=== PATIENT | female | born 1975 | race Caucasian/White ===

== ENCOUNTER 2016-04-27 14:54 | Emergency (ER) | payer OTHER ==
[2016-04-27] MEDS ORDERED: KETOROLAC TROMETHAMINE 60 MG/2 ML VIAL ONE (15:20)
--- NOTE | 2016-04-27 16:37 | RADIOLOGY REPORT ---
HISTORY: Pain COMPARISON: None. FINDINGS: 3 views of the right knee were obtained. No fracture or dislocation is demonstrated. There is no join t effusion. Joint spaces are preserved. There is no chondrocalcinosis. IMPRESSION: Negative right knee. Final Electronic Signature: This report was electronically signed by Yunior Vasquez MD on 04/27/2016 4:35 PM. anton /
--- NOTE | 2016-04-27 16:44 | MRI REPORT ---
EXAM:[place] [id number] INDICATION: Popping sound and severe pain. COMPARISON:Radiographs from earlier today TECHNIQUE:Multiplanar T2 fat suppressed, parasagittal proton-density and coronal T1-weighted images w ere obtained through the right knee, along with spoiled gradient echo parasagittal images. FINDINGS: A small joint effusion is present. The patellofemoral ligaments are intact. The patellar an d trochlear cartilage appear normal. The quadriceps and patellar tendons are intact. There is a nonsp ecific small focus of marrow edema in the superior aspect of the patella. No fracture is demonstrated. The cruciate and collateral ligaments are intact. The iliotibial band, p opliteus tendon, biceps femoris tendon, and other lateral supporting structures are intact. The medial and lateral articular cartilage appears normal. Abnormal linear signal intensity and loss of volume involving the posterior horn of the lateral meniscus, with meniscal material displaced into the intercondylar notch. Some of the material is attached to the anterior horn, consistent with a bu cket-handle tear. The medial meniscus is intact. There is no Aguillon's cyst or other soft tissue mass. IMPRESSION: 1. Bucket-handle tear of the lateral meniscus, with displaced meniscal material in the intercondylar notch. 2. Intact ligaments and medial meniscus. 3. Small joint effusion. 4. Small focus of marrow edema in the superior patella, possibly from contusion. This report was discussed with Dr. Reynolds on 04/27/2016 at 4:44 PM Final Electronic Signature: This report was electronically signed by Yunior Vasquez MD on 04/27/2016 4:41 PM. anton /
[2016-04-27] MEDS ORDERED: HYDROmorphone HCL 1 MG/ML SYR ONE (17:14)
[2016-04-27] MEDS ORDERED: ONDANSETRON HCL 4 MG/2 ML VIAL ONE (17:14)
[2016-04-27 17:16] LABS: BASOPHIL# 0.1 X 10^3uL (0.0-0.1); BASOPHILS 0.6 % (0.0-2.0); EOSINOPHILS 1.8 % (0.0-6.0); EOSINOPHILS# 0.2 X 10^3uL (0.0-0.4); HEMATOCRIT 43.3 % (36.0-48.0); HEMOGLOBIN 14.8 g/dL (12.0-16.0); LYMPHOCYTES 18.6 % (20.0-40.0); LYMPHOCYTES# 1.7 X 10^3uL (0.8-3.8); MEAN CELL VOLUME 88.5 fL (80.0-100.0); MEAN CORPUS. HGB CONCENTRATION 34.3 g/dL (32.0-36.0); MEAN CORPUSCULAR HEMOGLOBIN 30.3 pg (29.0-35.0); MEAN PLATELET VOLUME 8.8 fL (7.4-10.4); MONOCYTES# 0.5 X 10^3uL (0.2-1.0); NEUTROPHILS# 6.6 X 10^3uL (2.6-6.7); PLATELET COUNT 324 X 10^3uL (130-440); RED BLOOD COUNT 4.89 X 10^6uL (4.20-6.10); RED CELL DISTRIBUTION WIDTH 12.4 % (11.5-14.5); WHITE BLOOD COUNT 9.1 X 10^3uL (3.9-10.7)
[2016-04-27 17:24] LABS: BLOOD UREA NITROGEN 20 mg/dL (7-17); CALCIUM 9.4 mg/dL (8.4-10.2); CHLORIDE 105 mmol/L (98-107); CREATININE 0.7 mg/dL (0.5-1.0); EST GLOMERULAR FILTRATION RATE > 60 mL/min; GLUCOSE 85 mg/dL (70-100); POTASSIUM 3.9 mmol/L (3.5-5.1); SODIUM 139 mmol/L (137-145)
[2016-04-27 17:32] LABS: INR 0.9
--- NOTE | 2016-04-27 17:52 | ER PHYSICIAN DOCUMENTATION ---
Physician Documentation [facility] Name:Kelly Martinez Age:40 yrs Sex:Female :1975 Arrival Date:04/27/2016 Time:14:54 Bed6 Private MD: Bony Raya Disposition: 04/27/16 17:01 Discharged to Home/Self Care. Impression: Lateral Meniscal Injury - : Acute Bucket Handle Tear. - Condition is Fair. - Discharge Instructions: Cartilage, Semilunar - KNEE PAIN, Meniscus Injury (possible). - Prescriptions for Hydrocodone- Acetaminophen 5-325 mg Oral Tablet - take 1 tablet by ORAL route every 6 hours As needed; 20 tablet. - Medical Reconciliation form form. - Follow up: Acosta Sanchez MD; When: 04/29/2016; Reason: Recheck today's complaints, Continuance of care. - Problem is new. - Symptoms have improved. - Notes: Keep leg iced and elevated for 2 - 3 days. Take Ibuprofen 600mg by mouth every 6 hours with food for 3 - 4 days. Crutches and non-weight bearing until directed by Dr. Acosta Sanchez, Orthopedic Surgeon. Take Hydrocodone one tablet by mouth every 6 hours with food as needed for severe pain. See Dr. Acosta Sanchez, Orthopedic Surgeon, at the [facility] at the [facility] on Friday, April 29, 2016 at 09:00 AM. Arrive 20 minutes early to fill out paperwork. HPI: 04/27 15:00 This 40 yrs old Female presents to ER via Private Vehicle with complaints of cd Knee Injury - RT. 15:00 The patient presents with decreased range of motion, an injury, pain, that is acute. cd The complaints affect the lateral aspect of right knee and posterior aspect of right knee. Context: The problem was sustained at work, resulted from twisting of the extremity, while getting up from a flexed kneeing position off the floor, the patient is not able to bear weight, the patient is not able to ambulate. Onset: The symptom(s)/episode began/occurred acutely, just prior to arrival. Associated signs and symptoms: The patient has no apparent associated signs or symptoms. Severity of symptoms: At their worst the symptoms were severe, in the emergency department the symptoms are unchanged. The patient has not experienced similar symptoms in the past. Historical: - Allergies: No known drug Allergies; - Home Meds: 1. multivitamin oral tab daily - PMHx: None; - Tetanus: > 10 years. - Ebola Screening: : Patient negative for fever greater than or equal to 101.5 degrees Fahrenheit, and additional compatible Ebola Virus Disease symptoms. Patient denies exposure to infectious person. Patient denies travel to an Ebola-affected area in the 21 days before illness onset. . - Immunization history: Flu Vaccine None. - Social history: Smoking status: Patient states former smoker of tobacco. ROS: 15:17 Neck: Negative for injury, pain, stiffness and swelling. cd Cardiovascular: Negative for chest pain, palpitations, edema and pleuritic pain. Respiratory: Negative for shortness of breath, dyspnea on exertion, cough, sputum production, wheezing, hemoptysis and pleuritic chest pain. Abdomen/GI: Negative for abdominal pain, nausea, vomiting, diarrhea, constipation, distension, melena, hematochezia and hematemesis. Back: Negative for injury, pain or muscle spasms. Skin: Negative for injury, rash, itching and discoloration. 15:17 Neuro: Negative for headache, weakness, numbness, tingling, and seizure. cd 15:17 Constitutional: Negative for poor PO intake. 15:17 MS/extremity: Positive for injury or acute deformity, decreased range of motion, pain, Negative for paresthesias, tingling. 15:17 All other systems are negative. Exam: Neck: Trachea midline, no thyromegaly or masses palpated, and no cervical lymphadenopathy. Supple, full range of motion without nuchal rigidity, or vertebral point tenderness. No Meningismus. Chest/axilla: Normal chest wall appearance and motion. Nontender with no deformity. No lesions are appreciated. Cardiovascular: Regular rate and rhythm with a normal S1 and S2. No gallops, murmurs, or rubs. Normal PMI, no JVD. No pulse deficits. Respiratory: Lungs have equal breath sounds bilaterally, clear to auscultation and percussion. No rales, rhonchi or wheezes noted. No increased work of breathing, no retractions or nasal flaring. Abdomen/GI: Soft, non-tender, with normal bowel sounds. No distension or tympany. No guarding or rebound. No evidence of tenderness throughout. Back: No spinal tenderness. No costovertebral tenderness. Full range of motion. Skin: Warm, dry with normal turgor. Normal color with no rashes, no lesions, and no evidence of cellulitis. 04/28 15:20 Neuro: Awake and alert, GCS 15, oriented to person, place, time, and situation. cd Cranial nerves II-XII grossly intact. Motor strength 5/5 in all extremities. Sensory grossly intact. Cerebellar exam normal. Normal gait. Constitutional: The patient appears alert, awake, anxious, in obvious distress, moderately distressed. Musculoskeletal/extremity: Extremities: the patient is contracted, diffusely, in the right knee, ROM: the patient is contracted, Circulation is intact in all extremities. Sensation intact. Joints: All joints are normal except the right knee displays limited range of motion, pain at rest, painful range of motion, along lateral and posterior joint line of right knee, Weight bearing: is unable to bear weight, Calves: are non-tender. Vital Signs: 04/27 15:15 BP 135 / 55; Pulse 99; Resp 18; Temp 98.4(O); Pulse Ox 97% on R/A; Weight 83.91 kg; lp Height 5 ft. 7 in. (170.18 cm); Pain 7/10; 17:12 BP 128 / 63; Pulse 69; Resp 16; Pulse Ox 97% on R/A; lp 17:34 BP 126 / 68; Pulse 68; Resp 16; Pulse Ox 96% on R/A; lp 15:15 Body Mass Index 28.97 (83.91 kg, 170.18 cm) lp Alpine Coma Score: 04/28 15:20 Eye Response: spontaneous(4). Verbal Response: oriented(5). Motor Response: obeys cd commands(6). Total: 15. MDM: 04/27 15:05 Patient medically screened. cd 15:06 Data interpreted: Pulse oximetry: on room air is 96 %. Interpretation: normal. cd 15:15 Differential diagnosis: dislocation, closed fracture, contusion, Meniscus Tear vs. ACL cd Tear. 16:30 Data reviewed: vital signs, nurses notes, old medical records, lab test result(s), cd radiologic studies, MRI, and as a result, I will discharge patient, initiate a consult, with an orthopedic surgeon, prescribe pain medication, Dilaudid, Toradol. 17:00 Counseling: I had a detailed discussion with the patient and/or guardian regarding: the cd historical points, exam findings, and any diagnostic results supporting the discharge/admit diagnosis, lab results, radiology results, the need for outpatient follow up, for a recheck, for a referral to a specialist, a orthopedic surgeon, to return to the emergency department if symptoms worsen or persist or if there are any questions or concerns that arise at home. Response to treatment: the patient's symptoms have markedly improved after treatment, the patient's condition has returned to base line, and as a result, I will discharge patient. Physician consultation: Acosta Sanchez MD was called at 16:45, was contacted at 16:45, regarding consult, patient's condition, outpatient follow-up, tomorrow, and will see patient in office, tomorrow. 04/27 17:26 Order name: CBC AUTO DIF, MDIF/RMOR IF IND; Complete Time: 13:09 EDMS 04/29 13:08 Interpretation: Normal. 04/27 17:26 Order name: BASIC METABOLIC PANEL; Complete Time: 13:09 EDMS 04/29 13:08 Interpretation: Normal. 04/27 17:34 Order name: PROTIME/INR; Complete Time: 13:09 EDMS 04/29 13:08 Interpretation: Normal. 04/27 16:38 Order name: KNEE; [address] [place] [id number]; Complete Time: 13:09 EDMS 04/29 13:08 Interpretation: Normal. 04/27 16:45 Order name: [place] [id number]; Complete Time: 13:09 EDMS 04/29 13:09 Interpretation: Abnormal: Acute Lateral Meniscus Buckle=Handle Tear (See Report). 04/27 15:05 Order name: Ice Packs; Complete Time: 15:19 04/27 16:58 Order name: ORTHO: 6" Cr Wrap; Complete Time: 17:23 cd 04/27 16:58 Order name: ORTHO: 6" Cr Wrap; Complete Time: 17:23 04/27 16:59 Order name: ORTHO: Crutches & Training; Complete Time: 17:14 cd Dispensed Medications: 15:19 Drug: Toradol 60 mg; Route: IM; Site: right gluteus; lp 16:00 Follow up: Response: Pain is decreased lp 17:12 Drug: Zofran 4 mg; Route: IVP; Infused Over: 2 mins; Site: right antecubital; lp 17:23 Follow up: Response: Nausea is decreased lp 17:13 Drug: Dilaudid 1 mg; Route: IVP; Site: right antecubital; lp 17:23 Follow up: Response: Pain is decreased lp Signatures: Olayinka Verdugo RN RN tg Shanna Rose RN RN lp Daley, Chris, MD MD cd
--- NOTE | 2016-04-27 17:52 | ER NURSING DOCUMENTATION ---
Nurse's Notes [facility] Name:Kelly Martinez Age:40 yrs Sex:Female :1975 Arrival Date:04/27/2016 Time:14:54 Bed6 Private MD: Diagnosis:Lateral Meniscal Injury-: Acute Bucket Handle Tear Presentation: 04/27 14:58 Acuity: MICHAELA 4 tg 15:14 Presenting complaint: Patient states: L knee injury at work. Transition of care: Home. lp 15:14 Method Of Arrival: Private Vehicle lp Triage Assessment: 15:17 General: Appears in no apparent distress, Behavior is anxious. Pain: Complains of pain lp in posterior aspect of right knee, medial aspect of right knee and right knee. EENT: No deficits noted. Neuro: No deficits noted. Cardiovascular: No deficits noted. Respiratory: No deficits noted. GI: No deficits noted. : No deficits noted. Derm: No deficits noted. Musculoskeletal: Circulation, motion, and sensation intact Capillary refill < 3 seconds Range of motion limited in right knee Swelling present in lateral aspect of right knee, posterior aspect of right knee, medial aspect of right knee and right knee Tenderness present in lateral aspect of right knee, posterior aspect of right knee, medial aspect of right knee and right knee. Injury Description: Fall while standing at work. Historical: - Allergies: No known drug Allergies; - Home Meds: 1. multivitamin oral tab daily - PMHx: None; - Tetanus: > 10 years. - Ebola Screening: : Patient negative for fever greater than or equal to 101.5 degrees Fahrenheit, and additional compatible Ebola Virus Disease symptoms. Patient denies exposure to infectious person. Patient denies travel to an Ebola-affected area in the 21 days before illness onset. . - Immunization history: Flu Vaccine None. - Social history: Smoking status: Patient states former smoker of tobacco. Screenin:19 Infectious Disease Risk None. Abuse screen: Denies threats or abuse. Denies injuries lp from another. Nutritional screening: No deficits noted. Assessment: 15:18 See Triage Assessment done by same RN. lp Vital Signs: 15:15 BP 135 / 55; Pulse 99; Resp 18; Temp 98.4(O); Pulse Ox 97% on R/A; Weight 83.91 kg; lp Height 5 ft. 7 in. (170.18 cm); Pain 7/10; 17:12 BP 128 / 63; Pulse 69; Resp 16; Pulse Ox 97% on R/A; lp 17:34 BP 126 / 68; Pulse 68; Resp 16; Pulse Ox 96% on R/A; lp 15:15 Body Mass Index 28.97 (83.91 kg, 170.18 cm) lp Jose Coma Score: 03 15:20 Eye Response: spontaneous(4). Verbal Response: oriented(5). Motor Response: obeys cd commands(6). Total: 15. ED Course: 04/27 14:55 Patient arrived in ED. ds 14:58 Triage completed. tg 15:04 Bony Reynolds MD is Attending Physician. cd 15:14 Shanna Rose RN is Primary Nurse. lp 15:[address] Reynolds notified. lp 15:19 Valuables Remains with patient Patient has correct armband on for positive lp identification. Placed in gown. Bed in low position. Call light in reach. Side rails up X 1. 15:41 Patient moved to radiology. ms 15:51 Patient moved back from radiology. ms 16:59 Acosta Sanchez MD is Referral Physician. cd 17:23 Inserted peripheral IV: 20 gauge in right antecubital area and blood collected. Crutch lp training done. Cr wrap to right knee. Administered Medications: 15:19 Drug: Toradol 60 mg; Route: IM; Site: right gluteus; lp 16:00 Follow up: Response: Pain is decreased lp 17:12 Drug: Zofran 4 mg; Route: IVP; Infused Over: 2 mins; Site: right antecubital; lp 17:23 Follow up: Response: Nausea is decreased lp 17:13 Drug: Dilaudid 1 mg; Route: IVP; Site: right antecubital; lp 17:23 Follow up: Response: Pain is decreased lp Outcome: 17:01 Discharge ordered by . cd 17:26 Discharged to home ambulatory, with crutches. lp 17:26 Condition: stable 17:26 Instructed on crutch walking, discharge instructions, follow up and referral plans. no drinking with medication. 17:52 Patient left the ED. lp Signatures: Olayinka Verdugo RN RN Shanna Rose RN RN lp Srot, Jaida, Reg Reg ds Bony Reynolds MD MD cd Strickland, Mary ms
== END 2016-04-27 17:52 | disposition home or self-care (01) ==
LOC: ER 14:54
DX: S83.281A Other tear of lateral meniscus, current injury, right knee, initial encounter (principal); X50.0XXA Overexertion from strenuous movement or load, initial encounter; Y92.89 Other specified places as the place of occurrence of the external cause; Y93.E5 Activity, floor mopping and cleaning; Y99.0 Civilian activity done for income or pay
CPT/HCPCS: 80048; 85025; 85610; 96372; 96374; 96375; 99284; J1170; J1885; J2405

== ENCOUNTER 2016-05-03 10:02 | Day surgery (SDC) | payer OTHER ==
[2016-05-03] MEDS ORDERED: CEFAZOLIN SODIUM 1 GM in NORMAL SALINE MINI-BAG+ 100 ML IV ONE (10:23)
[2016-05-03] MEDS ORDERED: CEFAZOLIN SODIUM 1 GM/10 ML VIAL ONE (10:58)
[2016-05-03] MEDS ORDERED: MIDAZOLAM HCL 2 MG/2 ML SYR IV ONE (11:12)
[2016-05-03] MEDS ORDERED: LIDOCAINE HCL 1% 20 ML VIAL SUBCUT ONE ×2 (11:12→12:19)
[2016-05-03] MEDS ORDERED: FAMOTIDINE IN SALINE, ISO-OSM 20 MG/50 ML PIGGYBACK IV SCH ×2 (11:15→12:19)
[2016-05-03] MEDS ORDERED: ACETAMINOPHEN 1,000 MG/100 ML VIAL IV SCH ×2 (11:15→12:19)
[2016-05-03] MEDS ORDERED: MIDAZOLAM HCL 2 MG/2 ML VIAL ONE (11:23)
[2016-05-03] MEDS ORDERED: DEXAMETHASONE 4 MG/ML VIAL ONE (11:30)
[2016-05-03] MEDS ORDERED: ONDANSETRON HCL 4 MG/2 ML VIAL ONE (11:30)
[2016-05-03] MEDS ORDERED: FENTANYL 100 MCG/2 ML VIAL ONE ×3 (11:30→13:13)
[2016-05-03] MEDS ORDERED: BUPIVACAINE/EPI 0.25% 1 VIAL VIAL ONE (11:40)
[2016-05-03] MEDS ORDERED: LACTATED RINGERS 1,000 ML IV SCH ×3 (12:00→13:00)
[2016-05-03] MEDS ORDERED: ONDANSETRON HCL 4 MG/2 ML VIAL IV PRN (12:17)
[2016-05-03] MEDS: MORPHINE SULFATE 10 MG/ML SYR IV PRN ×2 (12:49→13:00)
[2016-05-03 12:57] VITALS: TEMP 97.7
[2016-05-03] MEDS: FENTANYL 100 MCG/2 ML VIAL IV PRN ×2 (13:03→14:11)
[2016-05-03] MEDS: HYDROmorphone HCL 1 MG/ML SYR IV PRN ×4 (13:15→13:45)
[2016-05-03] MEDS ORDERED: HYDROmorphone HCL 1 MG/ML SYR ONE ×2 (13:23→13:43)
[2016-05-03 13:36] VITALS: RESP 16
[2016-05-03] MEDS ORDERED: KETOROLAC TROMETHAMINE 30 MG/ML VIAL IV ONE (13:56)
[2016-05-03 14:14] VITALS: BP 109/60; PULSE 54; O2SAT 96
--- NOTE | 2016-05-03 18:50 | OPERATIVE REPORT ---
DATE OF SURGERY: 05/03/16 SURGEON: Acosta Sanchez MD PREOPERATIVE DIAGNOSIS: Bucket handle tear of the right lateral meniscus. POSTOPERATIVE DIAGNOSIS: Bucket handle tear of the right lateral meniscus. PROCEDURE PERFORMED: Right knee arthroscopy and lateral meniscus repair. IMPLANTS USED: Mitek RapidLoc x3. INDICATIONS FOR PROCEDURE: Patient is a 40-year-old female who was getting up from a kneeling position when she felt a pop in her right knee, after which she was unable to fully extend the knee and had severe pain with subsequent swelling. An MRI then revealed findings consistent with a bucket-handle tear of the lateral meniscus. Due to the clearly unstable nature of the injury and the need for early intervention to facilitate healing, she was taken to the operating room for right knee arthroscopy and meniscal repair. SUMMARY: After informed consent was obtained, the patient was taken to the operating room where she was placed in the supine position under general anesthesia. After adequate anesthesia was achieved, the right knee and lower extremity were prepped and draped in the usual sterile fashion, the limb was gently exsanguinated, the a tourniquet was inflated about the proximal thigh to 300 mmHg. A standard anterior lateral arthroscopic incision was then performed, and the arthroscope was then guided into the knee and directed into the suprapatellar pouch where the suprapatellar pouch was examined and noted to be free of any loose bodies or other pathology. 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 The central portion of the patella and the femoral trochlea were both free of chondromalacia. The arthroscope was then guided into the medial gutter which was noted to be free of any loose bodies or other pathology. The arthroscope was then guided into the anterior portion of the knee and directed medially, at which time the anteromedial incision was established under direct visualization. A shaver was then introduced into the knee, and at that time, a synovectomy was performed in the anterior portion of the knee in order to allow better visualization. There was no displaced meniscus in the femoral notch. The anterior cruciate ligament was examined and tested with a probe and noted to be stable and intact. The arthroscope was the guided into the medial compartment, at which time the medial meniscus was examined, and again tested with a probe and noted to be stable and intact. Likewise, the remainder of the medial compartment was free of any pathology with the exception of a small area of minimal chondromalacia on the medial femoral condyle. The arthroscope was then guided into the lateral compartment, where again it was noted that the lateral meniscus was in a reduced position. There were no central tears noted, and a probe was used to examine the meniscus which was then noted to be detached along its periphery from the posterior horn to about the 8 oclock position. A meniscal rasp was used to prepare the outer edge of the meniscus and site of detachment, after which the repair was performed using 3 Mitek RapidLoc anchors. Each anchor was carefully tested after insertion, and excess suture was cut using the arthroscopic pusher/ cutter. Once the repair was completed, it was tested with a probe and noted to be stable. The arthroscope was then guided into the lateral gutter which was noted to be free of any loose bodies or other pathology. The anesthesiology had drawn some blood from the patient at the beginning of the case, which was allowed to clot on the back table in a sterile cup. The clotting portion was drawn up into a syringe, and this was squeezed into the repair site using a narrow arthroscopic cannula. The excess fluid was then drained from the knee, and the incision were each closed with a single 4-0 Monocryl suture in a subcuticular fashion. A lightly compressive sterile dressing was then applied, and the tourniquet was then deflated. The patient tolerated the procedure well, and was taken to the recovery room in stable condition. ESTIMATED BLOOD LOSS: Minimal. FLUIDS: Lactated ringers 750 mL. TOURNIQUET TIME: 36 minutes MTDD
== END 2016-05-03 14:48 | disposition home or self-care (01) ==
LOC: SDS 10:02
PROVIDERS: ATTEND Orthopaedic Surgery
DX: M23.251 Derangement of posterior horn of lateral meniscus due to old tear or injury, right knee (principal)
CPT/HCPCS: J0690; J1170; J1885; J2250; J2270; J2405